=== PATIENT | male | born 1950 | race Caucasian/White ===

== ENCOUNTER → 2024-04-28 | Outpatient (CLI) | payer MEDICARE ==
--- NOTE | 2024-05-26 10:02 | PE ---
Patient: Guzman Miller Ordering Physician: Unknown, Unknown ID: [id number] Phone, Pager: Phone: N/A Jon tierney: N/A : 1950 Age/Gender: 73Y, M Primary Location: N/A Procedure: PETCT SKULL TO THIGH Study Date: 04/28/2024 10:40:39 AM EXAMINATION TYPE: PET CT fusion skull to thigh DATE OF EXAM: 05/05/2024 CLINICAL INDICATION: Solid pulmonary nodule. TECHNIQUE: Following the intravenous administration of 11.96 mCi of F-18 FDG, whole body images are performed from the skull base to the midthigh. Images are reviewed on the computer in the coronal, axial, and sagittal planes. Reconstructed rotating images are created on independent workstation and reviewed on the computer. A non-contrast CT is performed in conjunction with the PET scan. Glucose level 85 mg/dL CT DLP: 920 mGycm, Automated exposure control for dose reduction was used. COMPARISON: CT None, PET/CT None, MRI: None FINDINGS: Mediastinal SUV mean is 2.1. Hepatic parenchyma SUV mean is 2.8. SKULL BASE AND NECK: No suspicious radiotracer activity. CHEST, MEDIASTINUM, AND HILAR REGION: Subcarinal lymph node max SUV 6.4. Left hilar lymph node max SUV 8.2. Right pulmonary hilum lymph node max SUV 7.8. AP window lymph nodes max SUV 5.99 Suspected atelectasis in the left lung base medially max SUV 6.2. ABDOMEN AND PELVIS: No suspicious radiotracer activity. MUSCULOSKELETAL STRUCTURES: No suspicious radiotracer activity. Degenerative uptake at the AC joints bilaterally max SUV 7.6 on the right and 5.[address] CT: Enlarged left thyroid gland extending into the superior mediastinum. Moderate coronary cedric ry stenosis. Aortic valve calcifications. Heart is enlarged. Fat-containing umbilical hernia. The ap pendix is normal. Clonic diverticulosis. Prostatomegaly. Left fat-containing inguinal hernia. IMPRESSION: No priors available for comparison. 1. Atelectasis in the medial aspect of the left lower lobe with uptake felt to be in infectious/infl ammatory process. 2. Scattered lymph nodes within the mediastinum with FDG activity. No primary mass definitively visu alized correlate for infectious/inflammatory process less likely a lymphoma. Surveillance CT imaging recommended. 3. Small left pneumothorax versus bulla/scarring.
== END | disposition home or self-care (01) ==
LOC: RADPETMAIN 09:22
PROVIDERS: ATTEND Internal Medicine
DX: J98.11 Atelectasis (principal); R91.8 Other nonspecific abnormal finding of lung field
CPT/HCPCS: 78815; A9552

== ENCOUNTER → 2024-08-17 | Outpatient (CLI) | payer MEDICARE ==
[2024-08-17 13:03] LABS: African American GFR (CKD) >90 (>60 ml/min/1.73 sqM); Blood Urea Nitrogen 16 mg/dL (9-20); Non-African American GFR(CKD) 83 (>60 ml/min/1.73 sqM)
--- NOTE | 2024-08-17 14:55 | CT ---
EXAMINATION TYPE: CT chest w con DATE OF EXAM: 08/17/2024 1:44 PM COMPARISON: None. CLINICAL INDICATION: Male, 74 years old with history of R59.0 LOCALIZED ENLARGED LYMPH NODES, HX OF C OPD, ENLARGED LYMPH NODES TECHNIQUE: Axial images were obtained at 5 mm thick sections. Reconstructed images are reviewed on [employer] computer in the coronal plane. Contrast used:100 mL mL of Isovue 300 with IV Contrast, (none if empty) Oral contrast used: (none if empty) CT DLP: 570.8 mGycm, Automated exposure control for dose reduction was used. FINDINGS: Thyroid is enlarged. An ill defined hypodensity measuring 2.2 cm enlarged left lobe thyroid. Left lo be thyroid appears heterogenous extending into the superior mediastinum. Correlate goiter. Additional evaluation with ultrasound could be performed. There is a punctate lung density in the posterior lateral right apex. Series 4 image 12. There is a cavitary lesion with internal nodule measuring 2.4 cm in the posterior left lung. Small ca lcification may be on mediastinal windows. Neoplasm should be considered. Differential diagnosis coul d include an aspergilloma. Findings are diminished from the PET/CT of 04/28/2024. There is a 1.4 cm lymph node in the pretracheal space. Additional small scattered nodes are present. The ascending aorta diameter at the level of the main pulmonary artery is 3.8 cm. The main pulmonar y artery diameter at the bifurcation is 2.[address] sections are obtained through the upper abdomen. Abdomen is essentially unremarkable. IMPRESSION: 1. Cavitary lesion posterior right lung base smaller than comparison. 2. Previous pneumothorax has resolved. 3. Persistent enlarged mediastinal lymph node. 3. Enlarged lymph node with extension towards the superior mediastinum. Additional workup with ultras ound recommended [facility], Workstation: [facility], 08/17/2024 2:52 PM
== END | disposition home or self-care (01) ==
LOC: RADCTMAIN 12:16
PROVIDERS: ATTEND Internal Medicine
DX: J44.9 Chronic obstructive pulmonary disease, unspecified (principal); R59.0 Localized enlarged lymph nodes; R91.1 Solitary pulmonary nodule
CPT/HCPCS: 82565; 84520; 71260; Q9967